=== PATIENT | female | born 1970 | race Hispanic/Latino ===

== ENCOUNTER 2017-05-23 10:07 | Emergency (ER) | payer OTHER ==
[2017-05-23 10:18] VITALS: BP 148/87; PULSE 102; RESP 16; O2SAT 98
[2017-05-23 10:19] VITALS: BMI 31.8
--- NOTE | 2017-05-23 11:23 | ED PDOC ---
HPI: General Adult Time Seen by Provider: 05/23/17 10:24 Chief Complaint (Nursing): Flu-like Symptoms History Per: Patient Onset/Duration Of Symptoms: Days (2) Current Symptoms Are (Timing): Still Present Severity: Moderate Pain Scale Rating Of: 3 Additional Complaint(s): Fever sore throat and body aches x 2 days. Non productive cough No SOB Past Medical History Vital Signs: Last Vital Signs Temp 101.8 F H 05/23/17 11:00 Pulse 102 H 05/23/17 10:17 Resp 16 05/23/17 10:17 BP 148/87 05/23/17 10:17 Pulse Ox 98 05/23/17 10:17 - Medical History PMH: Gastritis - Surgical History Surgical History: Appendectomy - Family History Family History: States: Unknown Family Hx - Home Medications Home Medications: Ambulatory Orders Medication Instructions Recorded Naproxen [Naprosyn] 500 mg PO Q12H #20 tab 05/23/17 Oseltamivir [Tamiflu] 75 mg PO BID #10 cap 05/23/17 - Allergies Allergies/Adverse Reactions: Allergies Allergy/AdvReac Type Severity Reaction Status Date / Time No Known Allergies Allergy Verified 12/17/15 04:03 Review of Systems Constitutional: Positive for: Fever, Malaise ENT: Positive for: Throat Pain Respiratory: Positive for: Cough Physical Exam - Physical Exam Appears: Positive for: Non-toxic, No Acute Distress Skin: Positive for: Normal Color, Warm, DRY ENT: Positive for: Pharyngeal Erythema. Negative for: Tonsillar Exudate Neck: Positive for: Normal, Painless ROM Cardiovascular/Chest: Positive for: Regular Rate, Rhythm Respiratory: Positive for: CNT, Normal Breath Sounds Extremity: Positive for: Normal ROM Neurologic/Psych: Positive for: Alert, Oriented - ECG O2 Sat by Pulse Oximetry: 98 Disposition - Clinical Impression Clinical Impression: Influenza - Patient ED Disposition Is Patient to be Admitted: No Counseled Patient/Family Regarding: Studies Performed, Diagnosis, Need For Followup, Rx Given - Disposition Referrals: [facility] [place] [Outside] Disposition: Routine/Home Disposition Time: 11:23 Condition: FAIR Prescriptions: Naproxen [Naprosyn] 500 mg PO Q12H #20 tab Oseltamivir [Tamiflu] 75 mg PO BID #10 cap Instructions: Influenza (ED)
[2017-05-23 11:37] VITALS: TEMP 101.5
--- NOTE | 2017-05-23 12:46 | RAD ---
HISTORY: cough COMPARISON: No prior. TECHNIQUE: Chest PA and lateral FINDINGS: LUNGS: No active pulmonary disease. PLEURA: No significant pleural effusion identified. No pneumothorax apparent. CARDIOVASCULAR: Normal. OSSEOUS STRUCTURES: No significant abnormalities. VISUALIZED UPPER ABDOMEN: Normal. OTHER FINDINGS: None. IMPRESSION: No active disease.
== END 2017-05-23 11:37 | disposition home or self-care (01) ==
LOC: H.ER 10:07
DX: J11.1 Influenza due to unidentified influenza virus with other respiratory manifestations (principal)